=== PATIENT | female | born 1990 | race Caucasian/White ===

== ENCOUNTER 2018-06-09 06:15 | Emergency (ER) | payer SELFPAY ==
[~2018-06-09] VITALS: Ht 180.3 cm; Wt 86.2 kg
--- NOTE | 2018-06-09 06:37 | NUR ---
Patient discharged to home in stable conditon. Written and verbal after care instructions given. Patient verbalizes understanding of instructions.
[2018-06-09 06:38] VITALS: BP 110/71
== END 2018-06-09 06:38 | disposition home or self-care (01) ==
LOC: ER 06:21
DX: H10.9 Unspecified conjunctivitis (principal); F12.10 Cannabis abuse, uncomplicated
CPT/HCPCS: 99281; A4663

== ENCOUNTER 2019-09-07 18:09 | Emergency (ER) | payer MEDICAID ==
[~2019-09-07] VITALS: Ht 180.3 cm; Wt 86.2 kg
[2019-09-07] MEDS ORDERED: DEXAMETHASONE SOD PHOSPHATE 4 MG INJ IM ONE (18:45)
[2019-09-07] MEDS ORDERED: PENICILLIN G BENZATHINE 2.4 MMU/4 ML DISP.SYRIN IM ONE ×2 (18:45→18:46)
[2019-09-07] MEDS ORDERED: DEXAMETHASONE SOD PHOSPHATE 10 MG INJ ONE (18:46)
[2019-09-07] MEDS ORDERED: IV NORMAL SALINE 500 ML BAG IV ONE (19:00)
--- NOTE | 2019-09-07 20:07 | NUR ---
Patient discharged to home in stable conditon. Written and verbal after care instructions given. Patient verbalizes understanding of instructions. Walked out of ER with no distress noted.
[2019-09-07 20:08] VITALS: BP 130/70
== END 2019-09-07 20:09 | disposition home or self-care (01) ==
LOC: ER 18:11
DX: J03.90 Acute tonsillitis, unspecified (principal); F12.10 Cannabis abuse, uncomplicated
CPT/HCPCS: 96372 ×2; 99283; J1100; A4663; J7030

== ENCOUNTER 2019-09-14 15:46 | Emergency (ER) | payer MEDICAID ==
[~2019-09-14] VITALS: Ht 180.3 cm; Wt 86.2 kg
--- NOTE | 2019-09-14 16:48 | NUR ---
Dr Sumner is at bedside, MSE in progress
--- NOTE | 2019-09-14 17:41 | NUR ---
Patient discharged to home in stable condition with brisk steady gait. Written and verbal after care instructions given to patient. Patient verbalizes understanding & compliance of instructions.
== END 2019-09-14 17:41 | disposition home or self-care (01) ==
LOC: ER 15:46
DX: J02.8 Acute pharyngitis due to other specified organisms (principal); B97.89 Other viral agents as the cause of diseases classified elsewhere; F12.10 Cannabis abuse, uncomplicated
CPT/HCPCS: 36415; 86403; 87070; A4663